=== PATIENT | female | born 1985 | race Caucasian/White ===

== ENCOUNTER 2016-06-03 21:41 | Emergency (ER) | payer OTHER ==
[~2016-06-03] VITALS: Ht 170.2 cm; Wt 54.4 kg
[2016-06-03 22:04] VITALS: BP 134/90
--- NOTE | 2016-06-03 22:59 | NUR ---
30Y/O FEMALE PRESENTED TO ER C/O OF PAIN TO RT FOOT AFTER SOMETHING FELL IN HER FOOT 2 DAYS AGO. HX OF CIRRHOSIS OF THE LIVER . PT DENIES N/V/D; SKIN IS PINK/WARM/DRY; AAOX4 WITH EVEN AND STEADY GAIT; LUNGS CLEAR BL; HR EVEN AND REGULAR; PT DENIES ANY FEVER, CP, SOB, OR COUGH AT THIS TIME; PATIENT STATES PAIN OF 10/10 AT THIS TIME; VSS; PATIENT POSITIONED FOR COMFORT; HOB ELEVATED; BEDRAILS UP X2; BED DOWN. ER MD MADE AWARE OF PT STATUS.
--- NOTE | 2016-06-03 22:59 | NUR ---
PT AMBULATED TO BED 7 AT THIS TIME.
--- NOTE | 2016-06-03 23:00 | NUR ---
Patient being evaluated by physician at bedside.
--- NOTE | 2016-06-03 23:09 | NUR ---
xray done at bedside
--- NOTE | 2016-06-03 23:47 | NUR ---
foot splint placed by emt
--- NOTE | 2016-06-03 23:50 | NUR ---
Yanni marroquin in ED - 06/03/16 at 2353 by TRANG Patient discharged with v/s stable. Written and verbal after care instructions given and explained. Patient verbalized understanding. Ambulatory with steady gait. All questions addressed prior to discharge. Advised to follow up with PMD.
[2016-06-03 23:51] VITALS: BP 128/87
--- NOTE | 2016-06-03 23:53 | NUR ---
pt left without signing discharge papers after foot splint was placed.
== END 2016-06-03 23:53 | disposition home or self-care (01) ==
LOC: MED 21:41
DX: S92.331A Displaced fracture of third metatarsal bone, right foot, initial encounter for closed fracture (principal); E11.9 Type 2 diabetes mellitus without complications; K74.60 Unspecified cirrhosis of liver; W01.0XXA Fall on same level from slipping, tripping and stumbling without subsequent striking against object, initial encounter; Y93.89 Activity, other specified; Y92.89 Other specified places as the place of occurrence of the external cause; Y99.8 Other external cause status

== ENCOUNTER 2016-07-23 21:25 | Emergency (ER) | payer OTHER ==
[~2016-07-23] VITALS: Ht 170.2 cm; Wt 54.4 kg
[2016-07-23 21:29] VITALS: BP 131/81
--- NOTE | 2016-07-23 23:20 | NUR ---
PATIENT LEFT WITHOUT BEING SEEN BY DR. ZIMMER. NO FURTHER CARE PROVIDED FOR PATIENT.
== END 2016-07-23 23:20 | disposition left against medical advice (07) ==
LOC: MED 21:25
DX: O26.891 Other specified pregnancy related conditions, first trimester (principal); R10.9 Unspecified abdominal pain; Z53.21 Procedure and treatment not carried out due to patient leaving prior to being seen by health care provider

== ENCOUNTER 2016-10-23 15:00 | Emergency (ER) | payer OTHER ==
[~2016-10-23] VITALS: Ht 167.6 cm; Wt 58.7 kg
[2016-10-23 15:33] VITALS: BP 133/82
== END 2016-10-23 17:15 | disposition left against medical advice (07) ==
LOC: MED 15:00
DX: R10.9 Unspecified abdominal pain (principal); Z53.21 Procedure and treatment not carried out due to patient leaving prior to being seen by health care provider
CPT/HCPCS: 81002; 81025

== ENCOUNTER 2016-11-15 17:05 | Emergency (ER) | payer OTHER ==
[~2016-11-15] VITALS: Ht 162.6 cm; Wt 61.4 kg
[2016-11-15 17:10] VITALS: BP 120/62
--- NOTE | 2016-11-15 18:56 | NUR ---
Patient ambulated to bed 3. RN evaluating patient at bedside.
--- NOTE | 2016-11-15 19:08 | NUR ---
PATIENT PRESENTS TO ED WITH c/o pain on rt [place]ola. pt states she has had problems with cysts on this breast in the past and has had to have it drained . PT DENIES N/V/D; AAOX4 WITH EVEN AND STEADY GAIT; LUNGS CLEAR BL; HR EVEN AND REGULAR; PT DENIES ANY FEVER, CP, SOB, OR COUGH AT THIS TIME; PATIENT STATES PAIN OF 10/10 AT THIS TIME; VSS; PATIENT POSITIONED FOR COMFORT; HOB ELEVATED; BEDRAILS UP X2; BED DOWN. ER MD MADE AWARE OF PT STATUS.
--- NOTE | 2016-11-15 19:20 | NUR ---
Dr. Nguyen evaluating patient at bedside.
[2016-11-15] MEDS ORDERED: NACL 0.9% 500 ML IV ONE (19:30)
[2016-11-15] MEDS ORDERED: KETOROLAC 30 MG/ML VIAL IVP ONE (19:30)
--- NOTE | 2016-11-15 19:55 | NUR ---
us at bedside
[2016-11-15 20:40] VITALS: BP 119/62
--- NOTE | 2016-11-15 20:40 | NUR ---
Patient discharged with v/s stable. Written and verbal after care instructions given and explained. Patient alert, oriented and verbalized understanding of instructions. Ambulatory with steady gait. All questions addressed prior to discharge. ID band removed. Patient advised to follow up with PMD. Rx of clindamycin, motrin and keflex given. Patient educated on indication of medication including possible reaction and side effects. Opportunity to ask questions provided and answered.
== END 2016-11-15 20:40 | disposition home or self-care (01) ==
LOC: MED 17:05
DX: O91.212 Nonpurulent mastitis associated with pregnancy, second trimester (principal); E11.9 Type 2 diabetes mellitus without complications
CPT/HCPCS: 76641; 76805; 81025; 82948; 96361; 96374; 99284; J1885; J7030; Q0092; 81002

== ENCOUNTER 2017-01-20 06:20 | Emergency (ER) | payer OTHER ==
[~2017-01-20] VITALS: Ht 170.2 cm; Wt 64.4 kg
[2017-01-20 06:31] VITALS: BP 137/86
--- NOTE | 2017-01-20 06:40 | NUR ---
PT TAKEN TO OF2
--- NOTE | 2017-01-20 06:46 | NUR ---
Dr. Quiroga evaluating patient
[2017-01-20] MEDS ORDERED: diphenhydrAMINE 50 MG CAP PO ONE (06:50)
--- NOTE | 2017-01-20 07:05 | NUR ---
Dr. Iqbal evaluating patient
[2017-01-20] MEDS ORDERED: DEXAMETHASONE 10 MG/ML VIAL IM ONE (07:10)
[2017-01-20 07:47] VITALS: BP 128/84
--- NOTE | 2017-01-20 07:47 | NUR ---
Patient discharged with v/s stable. Written and verbal after care instructions given and explained. Patient alert, oriented and verbalized understanding of instructions. Ambulatory with steady gait. All questions addressed prior to discharge. ID band removed. Patient advised to follow up with PMD. Rx of PERMETHRIN, KEFLEX, DIPHENHYDRAMINE given. Patient educated on indication of medication including possible reaction and side effects. Opportunity to ask questions provided and answered.
== END 2017-01-20 07:47 | disposition home or self-care (01) ==
LOC: MED 06:20
DX: S40.861A Insect bite (nonvenomous) of right upper arm, initial encounter (principal); S40.862A Insect bite (nonvenomous) of left upper arm, initial encounter; S20.469A Insect bite (nonvenomous) of unspecified back wall of thorax, initial encounter; W57.XXXA Bitten or stung by nonvenomous insect and other nonvenomous arthropods, initial encounter; Y93.89 Activity, other specified; Y92.89 Other specified places as the place of occurrence of the external cause; Y99.8 Other external cause status
CPT/HCPCS: 96372; 99283; J1100; Q0163

== ENCOUNTER 2017-01-22 17:12 | Emergency (ER) | payer OTHER ==
[~2017-01-22] VITALS: Ht 170.2 cm; Wt 65.5 kg
[2017-01-22 17:17] VITALS: BP 121/70
--- NOTE | 2017-01-22 20:07 | NUR ---
patient to er bed 8
--- NOTE | 2017-01-22 20:15 | NUR ---
31F BIB FATHER C/O BUG BITES TO BL ARMS X 6 DAYS. PT STATES WAS AT [facility] TWO DAYS AGO FOR SAME ISSUE. PT STATES 35 WEEKS AT THIS TIME. PT DENIES N/V/D; AAOX4 WITH EVEN AND STEADY GAIT; LUNGS CLEAR BL; HR EVEN AND REGULAR; PT DENIES ANY FEVER, CP, SOB, OR COUGH AT THIS TIME; PATIENT STATES PAIN OF 0/10 AT THIS TIME; VSS; PATIENT POSITIONED FOR COMFORT; HOB ELEVATED; BEDRAILS UP X2; BED DOWN. ER MD MADE AWARE OF PT STATUS.
[2017-01-22 20:50] VITALS: BP 121/75
--- NOTE | 2017-01-22 20:50 | NUR ---
Patient discharged with v/s stable. Written and verbal after care instructions given and explained. Patient alert, oriented and verbalized understanding of instructions. Ambulatory with steady gait. All questions addressed prior to discharge. ID band removed. Patient advised to follow up with PMD. Rx of BENADRYL, PREMETHRIN given. Patient educated on indication of medication including possible reaction and side effects. Opportunity to ask questions provided and answered.
== END 2017-01-22 20:50 | disposition home or self-care (01) ==
LOC: MED 17:12
DX: L29.9 Pruritus, unspecified (principal); E11.9 Type 2 diabetes mellitus without complications; F17.200 Nicotine dependence, unspecified, uncomplicated; W57.XXXA Bitten or stung by nonvenomous insect and other nonvenomous arthropods, initial encounter; Y93.89 Activity, other specified; Y92.89 Other specified places as the place of occurrence of the external cause; Y99.8 Other external cause status
CPT/HCPCS: 99282

== ENCOUNTER 2017-02-09 09:30 | Observation (INO) | payer OTHER ==
[~2017-02-09] VITALS: Ht 170.2 cm; Wt 65.8 kg
[2017-02-09] MEDS ORDERED: BEN50 PO (10:21)
[2017-02-09] MEDS ORDERED: PNV1TABL8 PO (10:21)
[2017-02-09] MEDS ORDERED: CREAM TP (10:21)
[2017-02-09] MEDS: TERBUTALINE 1 MG/ML VIAL SUBQ SCH ×2 (10:40→11:17)
[2017-02-09] MEDS ORDERED: TERBUTALINE 1 MG/ML VIAL SUBQ ONE (10:46)
== END 2017-02-09 12:17 | disposition home or self-care (01) ==
LOC: MLD 09:30
PROVIDERS: ADMIT Obstetrics & Gynecology; ATTEND Obstetrics & Gynecology
DX: O26.893 Other specified pregnancy related conditions, third trimester (principal); S40.862A Insect bite (nonvenomous) of left upper arm, initial encounter; S40.861A Insect bite (nonvenomous) of right upper arm, initial encounter; O62.9 Abnormality of forces of labor, unspecified; W57.XXXA Bitten or stung by nonvenomous insect and other nonvenomous arthropods, initial encounter; Y93.89 Activity, other specified; Y92.89 Other specified places as the place of occurrence of the external cause; Y99.8 Other external cause status; Z3A.36 36 weeks gestation of pregnancy
CPT/HCPCS: 96372; G0378; J3105

== ENCOUNTER 2017-09-05 16:45 | Emergency (ER) | payer OTHER ==
[~2017-09-05] VITALS: Ht 170.2 cm; Wt 54.4 kg
[~2017-09-05 16:45] MED LIST: BEN50 PO; CREAM TP; PNV1TABL8 PO
--- NOTE | 2017-09-05 16:51 | NUR ---
CALLED PATIENT FOR TRIAGE, PT NOT IN ER LOBBY, WENT OUT TO FRONT OF ED AND NO ANSWER.
[2017-09-05 16:53] VITALS: BP 161/89
--- NOTE | 2017-09-05 17:01 | NUR ---
pt ambulates w/ steady gait to bed 11 at this time.
[2017-09-05] MEDS ORDERED: ONDANSETRON 4 MG/2 ML VIAL IVP ONE (18:10)
[2017-09-05] MEDS ORDERED: MORPHINE SULFATE 4 MG/ML SYR IVP ONE (18:10)
[2017-09-05 18:53] LABS: BASOPHILS # (AUTO) 0.1 K/uL (0.00-0.22); BASOPHILS % (AUTO) 0.7 % (0.0-2.0); EOSINOPHILS # (AUTO) 0.1 K/uL (0-0.4); EOSINOPHILS % (AUTO) 1.2 % (0.0-4.0); HEMATOCRIT 40.4 % (36-48); HEMOGLOBIN 13.4 g/dL (12.0-16.0); LYMPHOCYTES # (AUTO) 2.6 K/uL (2.5-16.5); LYMPHOCYTES % (AUTO) 29.3 % (20.5-51.1); MEAN CORPUSCULAR HEMOGLOBIN 32 pg (27-31); MEAN CORPUSCULAR HGB CONC 33 g/dL (33-37); MEAN CORPUSCULAR VOLUME 96.7 fL (80-94); MONOCYTES # (AUTO) 0.4 K/uL (0.8-1.0); MONOCYTES % (AUTO) 4.4 % (1.7-9.3); NEUTROPHILS # (AUTO) 5.8 K/uL (1.8-7.7); NEUTROPHILS % (AUTO) 64.4 % (42.2-75.2); PLATELET COUNT (AUTO) 300 K/uL (140-450); RED BLOOD CELL COUNT(AUTO) 4.18 MIL/uL (4.20-5.40); RED CELL DISTRIBUTION WIDTH 14.5 % (11.6-13.7)
--- NOTE | 2017-09-05 18:56 | NUR ---
pt resting comfortably in [facility] at this time. will continue to monitor.
[2017-09-05 19:05] LABS: ANION GAP 15.1 (8-16); CARBON DIOXIDE 26.2 mmol/L (21-32); CREATININE 1.1 mg/dL (0.6-1.3); POTASSIUM 3.3 mmol/L (3.5-5.1)
--- NOTE | 2017-09-05 19:10 | NUR ---
Pt report given to MEDARDO MCCURDY. Transfer of care at this time.
[2017-09-05 19:12] LABS: ALBUMIN 3.6 g/dL (3.4-5.0); TOTAL BILIRUBIN 0.3 mg/dL (0.0-1.0)
--- NOTE | 2017-09-05 19:32 | NUR ---
pt unable to void at this time. Er MD made aware. no further orders noted
--- NOTE | 2017-09-05 20:18 | NUR ---
Patient appears to be resting comfortably in bed. Vital Signs within normal limits. Respirations even and unlabored.
[2017-09-05] MEDS ORDERED: CEPHALEXIN 500 MG CAP PO ONE (20:45)
[2017-09-05] MEDS ORDERED: SULFAMETH/TRIMETH DS 800/160MG 1 TAB PO ONE (20:45)
--- NOTE | 2017-09-05 21:15 | NUR ---
Patient discharged with v/s stable. Written and verbal after care instructions given and explained. Patient alert, oriented and verbalized understanding of instructions. Ambulatory with steady gait. All questions addressed prior to discharge. ID band removed. Patient advised to follow up with PMD. Rx of BACTRIM, KEFLEX AND IBUPROFEN given. Patient educated on indication of medication including possible reaction and side effects. Opportunity to ask questions provided and answered.
[2017-09-05 21:17] VITALS: BP 134/72
== END 2017-09-05 21:15 | disposition home or self-care (01) ==
LOC: MED 16:45
DX: L73.9 Follicular disorder, unspecified (principal); R74.0 Nonspecific elevation of levels of transaminase and lactic acid dehydrogenase [LDH]; E11.9 Type 2 diabetes mellitus without complications; Z79.899 Other long term (current) drug therapy
CPT/HCPCS: 36415; 80053; 83690; 85025; 96374; 96375; 99284; J2270; J2405

== ENCOUNTER 2018-01-26 18:29 | Emergency (ER) | payer OTHER ==
[~2018-01-26] VITALS: Ht 170.2 cm; Wt 54.4 kg
[2018-01-26 18:35] VITALS: BP 131/64
[2018-01-26] MEDS: MORPHINE SULFATE 2 MG/ML SYR IVP ONE (20:02)
[2018-01-26] MEDS: NACL 0.9% 500 ML IV ONE (20:07)
[2018-01-26 20:32] LABS: BASOPHILS # (AUTO) 0.1 K/uL (0.00-0.22); BASOPHILS % (AUTO) 0.8 % (0.0-2.0); EOSINOPHILS # (AUTO) 0.1 K/uL (0-0.4); EOSINOPHILS % (AUTO) 1.2 % (0.0-4.0); HEMATOCRIT 43.8 % (36-48); HEMOGLOBIN 14.4 g/dL (12.0-16.0); LYMPHOCYTES # (AUTO) 2.5 K/uL (2.5-16.5); LYMPHOCYTES % (AUTO) 25.6 % (20.5-51.1); MEAN CORPUSCULAR HEMOGLOBIN 32 pg (27-31); MEAN CORPUSCULAR HGB CONC 33 g/dL (33-37); MEAN CORPUSCULAR VOLUME 95.7 fL (80-94); MONOCYTES # (AUTO) 0.9 K/uL (0.8-1.0); NEUTROPHILS # (AUTO) 6.2 K/uL (1.8-7.7); NEUTROPHILS % (AUTO) 63.4 % (42.2-75.2); PLATELET COUNT (AUTO) 362 K/uL (140-450); RED BLOOD CELL COUNT(AUTO) 4.57 MIL/uL (4.20-5.40); RED CELL DISTRIBUTION WIDTH 13.7 % (11.6-13.7); WHITE BLOOD COUNT (AUTO) 9.8 K/uL (4.8-10.8)
[2018-01-26 20:49] LABS: APPEARANCE,URINE CLEAR (CLEAR); BILIRUBIN,URINE 1+ (NEGATIVE); BLOOD, URINE NEGATIVE (NEGATIVE); COLOR,URINE YELLOW (YELLOW); LEUKOCYTE ESTERASE ,URINE NEGATIVE (NEGATIVE); NITRITE, URINE NEGATIVE (NEGATIVE); UGLUCOSE NEGATIVE (NEGATIVE)
[2018-01-26 20:54] LABS: ANION GAP 15.2 (8-16); CARBON DIOXIDE 22.6 mmol/L (21-32); CREATININE 1.1 mg/dL (0.6-1.3); POTASSIUM 3.8 mmol/L (3.5-5.1)
[2018-01-26 20:56] LABS: PROTHROMBIN TIME 8.8 secs (10.8-13.4)
[2018-01-26 20:57] LABS: RBC,URINE 3-10 (FEW) /HPF (0-5); WBC,URINE 0-5 (RARE) /HPF (0-5)
[2018-01-26 21:03] LABS: ALBUMIN 3.7 g/dL (3.4-5.0); TOTAL BILIRUBIN 0.2 mg/dL (0.0-1.0)
[2018-01-26 21:20] VITALS: BP 127/74
== END 2018-01-26 21:20 | disposition home or self-care (01) ==
LOC: MED 18:29
DX: S13.4XXA Sprain of ligaments of cervical spine, initial encounter (principal); R51 Headache; E11.9 Type 2 diabetes mellitus without complications; K74.60 Unspecified cirrhosis of liver; Z88.0 Allergy status to penicillin; V89.2XXA Person injured in unspecified motor-vehicle accident, traffic, initial encounter; Y93.19 Activity, other involving water and watercraft; Y92.488 Other paved roadways as the place of occurrence of the external cause; Y99.8 Other external cause status
CPT/HCPCS: 36415; 70450; 72125; 80053; 81001; 81025; 82140; 85025; 85610; 85730; 96374; 99285; G0482; J2270; J7030

== ENCOUNTER 2018-03-29 12:31 | Emergency (ER) | payer SELFPAY ==
[~2018-03-29] VITALS: Ht 170.2 cm; Wt 54.4 kg
[2018-03-29 12:41] VITALS: BP 127/78
--- NOTE | 2018-03-29 12:43 | NUR ---
AAO PT AMBULATES TO BED 5
--- NOTE | 2018-03-29 12:45 | NUR ---
PT C/O VAGINAL BLEEDING X 2 WEEKS 10 ppd. STATES SHE'S 2 MOS SEEN AT CLINIC. LMP 3 MONTHS AGO UNK DATE. . 02/10 ABD PAIN. WEAKNESS+. HX---CIRRHOSIS OF LIVER
--- NOTE | 2018-03-29 12:56 | NUR ---
no fht heard via doppler; notified
--- NOTE | 2018-03-29 13:07 | NUR ---
lab at bedside
--- NOTE | 2018-03-29 13:36 | NUR ---
ultrasound at bedside
[2018-03-29 13:46] LABS: APPEARANCE,URINE CLEAR (CLEAR); BILIRUBIN,URINE NEGATIVE (NEGATIVE); BLOOD, URINE SMALL (NEGATIVE); COLOR,URINE YELLOW (YELLOW); LEUKOCYTE ESTERASE ,URINE NEGATIVE (NEGATIVE); NITRITE, URINE POSITIVE (NEGATIVE); UGLUCOSE NEGATIVE (NEGATIVE)
[2018-03-29 13:52] LABS: RBC,URINE 0-5 (RARE) /HPF (0-5); WBC,URINE 0-5 (RARE) /HPF (0-5)
[2018-03-29 13:52] LABS: HEMATOCRIT 36.5 % (36-48); HEMOGLOBIN 12.3 g/dL (12.0-16.0); MEAN CORPUSCULAR HEMOGLOBIN 32 pg (27-31); MEAN CORPUSCULAR HGB CONC 34 g/dL (33-37); MEAN CORPUSCULAR VOLUME 34.4 fL (80-94); RED BLOOD CELL COUNT(AUTO) 3.87 MIL/uL (4.20-5.40); WHITE BLOOD COUNT (AUTO) 10.2 K/uL (4.8-10.8)
[2018-03-29 13:53] LABS: BASOPHILS # (AUTO) 0.1 K/uL (0.00-0.22); BASOPHILS % (AUTO) 0.6 % (0.0-2.0); EOSINOPHILS # (AUTO) 0.1 K/uL (0-0.4); EOSINOPHILS % (AUTO) 0.9 % (0.0-4.0); LYMPHOCYTES # (AUTO) 2.8 K/uL (2.5-16.5); LYMPHOCYTES % (AUTO) 25.7 % (20.5-51.1); MONOCYTES # (AUTO) 0.6 K/uL (0.8-1.0); MONOCYTES % (AUTO) 5.7 % (1.7-9.3); NEUTROPHILS # (AUTO) 6.9 K/uL (1.8-7.7); NEUTROPHILS % (AUTO) 67.1 % (42.2-75.2); PLATELET COUNT (AUTO) 404 K/uL (140-450); RED CELL DISTRIBUTION WIDTH 13.8 % (11.6-13.7)
[2018-03-29 13:53] LABS: HYALINE CASTS, URINE 0-10 /LPF (None Seen)
[2018-03-29] MEDS ORDERED: MORPHINE SULFATE 4 MG/ML SYR IM ONE (14:55)
[2018-03-29 15:20] VITALS: BP 116/69
--- NOTE | 2018-03-29 15:20 | NUR ---
Patient discharged with v/s stable. Written and verbal after care instructions given and explained. Patient alert, oriented and verbalized understanding of instructions. Ambulatory with steady gait. All questions addressed prior to discharge. ID band removed. Patient advised to follow up with PMD. Rx of Macrobid, [place], Zofran given. Patient educated on indication of medication including possible reaction and side effects. Opportunity to ask questions provided and answered.
== END 2018-03-29 15:20 | disposition home or self-care (01) ==
LOC: MED 12:31
DX: O20.0 Threatened abortion (principal); O23.41 Unspecified infection of urinary tract in pregnancy, first trimester; F17.200 Nicotine dependence, unspecified, uncomplicated; E11.9 Type 2 diabetes mellitus without complications; Z3A.12 12 weeks gestation of pregnancy; Z88.0 Allergy status to penicillin; Z79.899 Other long term (current) drug therapy
CPT/HCPCS: 36415; 76817; 81001; 84702; 85025; 86900; 86901; 96372; 99284; J2270; Q0092

== ENCOUNTER 2018-06-07 11:47 | Emergency (ER) | payer MEDICAID ==
--- NOTE | 2018-06-07 11:59 | NUR ---
CALLED FOR TRIAGE, NO ANSWER.
--- NOTE | 2018-06-07 12:18 | NUR ---
CALLED FOR TRIAGE, NO ANSWER
== END 2018-06-07 11:59 | disposition left against medical advice (07) ==
LOC: MED 11:47
DX: R10.9 Unspecified abdominal pain (principal); Z53.21 Procedure and treatment not carried out due to patient leaving prior to being seen by health care provider

== ENCOUNTER 2018-06-25 13:23 | Emergency (ER) | payer MEDICAID ==
[~2018-06-25] VITALS: Ht 167.6 cm; Wt 54.9 kg
[2018-06-25 13:26] VITALS: BP 151/98
--- NOTE | 2018-06-25 13:36 | NUR ---
pt ambulated to er bed 03
--- NOTE | 2018-06-25 13:43 | NUR ---
32 YO F BIB SELF FOR MEDICAL CLEARANCE PRIOR TO BEING ADMITTED INTO REHAB/DETOX FOR DRUGS ETOH. PT NEEDS MED FILE ONCE CLEARED FAXED TO [facility]. PT DENIES THAT SHE NEEDS ANY MEDICAL ATTENTION. HX ETOH AND DRUG ABUSE RX DENIES
[2018-06-25 14:15] LABS: BASOPHILS # (AUTO) 0.1 K/uL (0.00-0.22); BASOPHILS % (AUTO) 0.6 % (0.0-2.0); EOSINOPHILS # (AUTO) 0.1 K/uL (0-0.4); EOSINOPHILS % (AUTO) 0.9 % (0.0-4.0); HEMATOCRIT 42.6 % (36-48); HEMOGLOBIN 13.9 g/dL (12.0-16.0); LYMPHOCYTES # (AUTO) 2.3 K/uL (2.5-16.5); LYMPHOCYTES % (AUTO) 20.9 % (20.5-51.1); MEAN CORPUSCULAR HEMOGLOBIN 31 pg (27-31); MEAN CORPUSCULAR HGB CONC 33 g/dL (33-37); MEAN CORPUSCULAR VOLUME 95.9 fL (80-94); MONOCYTES # (AUTO) 0.8 K/uL (0.8-1.0); NEUTROPHILS # (AUTO) 7.7 K/uL (1.8-7.7); NEUTROPHILS % (AUTO) 70.6 % (42.2-75.2); PLATELET COUNT (AUTO) 322 K/uL (140-450); RED BLOOD CELL COUNT(AUTO) 4.44 MIL/uL (4.20-5.40); WHITE BLOOD COUNT (AUTO) 10.9 K/uL (4.8-10.8)
[2018-06-25 14:20] LABS: BARBITURATE, URINE NEG. ng/ml (NEG <=200); BENZODIAZEPINE, URINE NEG. ng/mL (NEG <=200); CANNABINOID, URINE POS. ng/mL (NEG <=50); COCAINE, URINE NEG. ng/mL (NEG <=300); OPIATE, URINE NEG. ng/mL (NEG <=2000); PHENCYCLIDINE SCREEN,URINE NEG. ng/mL (NEG <=25)
[2018-06-25 14:24] LABS: APPEARANCE,URINE CLOUDY (CLEAR); BILIRUBIN,URINE NEGATIVE (NEGATIVE); BLOOD, URINE 1+ (NEGATIVE); COLOR,URINE YELLOW (YELLOW); LEUKOCYTE ESTERASE ,URINE NEGATIVE (NEGATIVE); NITRITE, URINE NEGATIVE (NEGATIVE); UGLUCOSE NEGATIVE (NEGATIVE)
[2018-06-25 14:25] LABS: ANION GAP 15.3 (8-16); CARBON DIOXIDE 24.1 mmol/L (21-32); CHLORIDE 102 mmol/L (98-107); GFR ARICAN-AMERICAN 82 mL/min (>90); GLUCOSE 99 mg/dL (74-106); POTASSIUM 3.4 mmol/L (3.5-5.1); SODIUM SERUM 138 mmol/L (136-145); UREA NITROGEN, BLOOD 15 mg/dL (7-18)
[2018-06-25 14:31] LABS: RBC,URINE 0-5 (RARE) /HPF (0-5); WBC,URINE 6-15 (FEW) /HPF (0-5)
[2018-06-25 14:32] LABS: ALBUMIN 3.8 g/dL (3.4-5.0); ASPARTATE AMINOTRANSFERASE 65 U/L (15-37); TOTAL BILIRUBIN 0.2 mg/dL (0.0-1.0)
[2018-06-25 14:42] LABS: ACETAMINOPHEN < 0.5 ug/ml (10-30)
[2018-06-25 18:31] VITALS: BP 145/89
--- NOTE | 2018-06-25 18:32 | NUR ---
Patient discharged with v/s stable. Written and verbal after care instructions given and explained. Patient verbalized understanding. Ambulatory with steady gait. All questions addressed prior to discharge. Advised to follow up with PMD.
== END 2018-06-25 18:32 | disposition home or self-care (01) ==
LOC: MED 13:23
DX: F10.229 Alcohol dependence with intoxication, unspecified (principal); F15.10 Other stimulant abuse, uncomplicated; F12.10 Cannabis abuse, uncomplicated; E11.9 Type 2 diabetes mellitus without complications; Z79.899 Other long term (current) drug therapy; Z88.0 Allergy status to penicillin; Y90.7 Blood alcohol level of 200-239 mg/100 ml
CPT/HCPCS: 36415; 80053; 80305; 81001; 81025; 85025; 87086; 87186; 99283; G0480; G0482

== ENCOUNTER 2018-08-23 08:54 | Emergency (ER) | payer MEDICAID ==
[~2018-08-23] VITALS: Ht 170.2 cm; Wt 56.2 kg
--- NOTE | 2018-08-23 09:03 | NUR ---
pt ambulated to er bed 02
[2018-08-23 09:05] VITALS: BP 167/92
--- NOTE | 2018-08-23 09:10 | NUR ---
PT BIB TO THE ED WITH THE CHIEF C/O PAIN ON RIGHT EAR X3 DAYS, RIGHT FOOTX 2 WEEKS AND RUQ ABDOMEN FOR 2WEEKS. PT STATES "I CAN'T HEAR". REPORTS VOMIT. NO N/V AT THIS TIME. AFEBRILE AT THIS TIME. LUNGS CLEAR. ABDOMEN SOFT ROUND AND TENDER. ACTIVE BOWEL SOUND. HAD NORMAL BM X1 TODAY. SWOLLEN RIGHT FOOT NOTED, UNABLE TO MOVE TOES, +NUMBNESS. STATES PAIN OF 10/10 AT THIS TIME. ER MD AWARE. HX OF DM, CIRRHOSIS OF LIVER AND CA GALL BLADDER.
[2018-08-23] MEDS ORDERED: KETOROLAC 30 MG/ML VIAL IM ONE (09:25)
--- NOTE | 2018-08-23 10:17 | NUR ---
PT WAS EXPLAINED ABOUT PT'S X-RAY RESULTS BY ZAINAB LA.
--- NOTE | 2018-08-23 10:40 | NUR ---
Patient discharged with v/s stable. Written and verbal after care instructions given and explained to patient and . Patient alert, oriented and verbalized understanding of instructions. Ambulatory with CRUTCHES. All questions addressed prior to discharge. ID band removed. Patient advised to follow up with PMD. Rx of ULTRAM, NARCAN, AUGMENTINE given. Patient educated on indication of medication including possible reaction and side effects. Opportunity to ask questions provided and answered.
[2018-08-23 10:49] VITALS: BP 143/92
== END 2018-08-23 10:40 | disposition home or self-care (01) ==
LOC: MED 08:54
DX: S90.31XA Contusion of right foot, initial encounter (principal); H66.91 Otitis media, unspecified, right ear; E11.9 Type 2 diabetes mellitus without complications; F10.10 Alcohol abuse, uncomplicated; J02.9 Acute pharyngitis, unspecified; Z88.0 Allergy status to penicillin; Z79.899 Other long term (current) drug therapy; X58.XXXA Exposure to other specified factors, initial encounter; Y93.89 Activity, other specified; Y92.89 Other specified places as the place of occurrence of the external cause; Y99.8 Other external cause status
CPT/HCPCS: 73610; 73630; 82948; 96372; 99283; J1885; Q0092

== ENCOUNTER 2018-11-07 21:46 | Emergency (ER) | payer MEDICAID ==
[~2018-11-07] VITALS: Ht 170.2 cm; Wt 54.4 kg
--- NOTE | 2018-11-07 21:50 | NUR ---
PATIENT PRESENTS TO ED WITH C/O RT SIDE ABD PAIN STARTING THIS AM WITH N/V. PATIENT STATES SHE HAS CHILLS. PT TOOK IBUPROFEN THIS AM W/O RELIEF. PT REPORTS HISTORY OF LIVER CIRRHOSIS, ETOH ABUSE, AND HTN. PATIENT STATES PAIN OF 10/10 AT THIS TIME; BLOOD PRESSURE ELEVATED BUT OTHER VSS; PATIENT POSITIONED FOR COMFORT; HOB ELEVATED; BEDRAILS UP X2; BED DOWN. ER MD MADE AWARE OF PT STATUS.
[2018-11-07 21:56] VITALS: BP 165/111
--- NOTE | 2018-11-07 22:00 | NUR ---
ER MD EVALUATING PATIENT AT BEDSIDE.
[2018-11-07] MEDS ORDERED: ONDANSETRON 4 MG/2 ML VIAL IVP ONE (22:05)
[2018-11-07] MEDS ORDERED: NACL 0.9% 1,000 ML IV ONE (22:05)
[2018-11-07] MEDS ORDERED: MORPHINE SULFATE 4 MG/ML SYR IVP ONE (22:05)
[2018-11-07] MEDS ORDERED: hydrALAZINE 20 MG/ML VIAL IVP ONE (22:10)
--- NOTE | 2018-11-07 22:20 | NUR ---
US TECH AT BEDSIDE.
[2018-11-07 22:49] LABS: BASOPHILS # (AUTO) 0.1 K/uL (0.00-0.22); BASOPHILS % (AUTO) 0.8 % (0.0-2.0); EOSINOPHILS # (AUTO) 0.1 K/uL (0-0.4); EOSINOPHILS % (AUTO) 0.7 % (0.0-4.0); HEMATOCRIT 38.7 % (36-48); HEMOGLOBIN 12.9 g/dL (12.0-16.0); LYMPHOCYTES # (AUTO) 2.6 K/uL (2.5-16.5); LYMPHOCYTES % (AUTO) 22.3 % (20.5-51.1); MEAN CORPUSCULAR HEMOGLOBIN 32 pg (27-31); MEAN CORPUSCULAR HGB CONC 33 g/dL (33-37); MEAN CORPUSCULAR VOLUME 96.4 fL (80-94); MONOCYTES # (AUTO) 0.8 K/uL (0.8-1.0); MONOCYTES % (AUTO) 6.8 % (1.7-9.3); NEUTROPHILS % (AUTO) 69.4 % (42.2-75.2); PLATELET COUNT (AUTO) 335 K/uL (140-450); RED BLOOD CELL COUNT(AUTO) 4.02 MIL/uL (4.20-5.40); RED CELL DISTRIBUTION WIDTH 13.3 % (11.6-13.7); WHITE BLOOD COUNT (AUTO) 11.5 K/uL (4.8-10.8)
[2018-11-07 23:02] LABS: ANION GAP 15.6 (8-16); CARBON DIOXIDE 23.7 mmol/L (21-32); POTASSIUM 3.3 mmol/L (3.5-5.1)
[2018-11-07 23:08] LABS: ALBUMIN 3.1 g/dL (3.4-5.0); TOTAL BILIRUBIN 0.3 mg/dL (0.0-1.0)
[2018-11-07 23:26] VITALS: BP 136/83
--- NOTE | 2018-11-07 23:26 | NUR ---
Patient discharged with v/s stable. Written and verbal after care instructions given and explained. Patient alert, oriented and verbalized understanding of instructions. Ambulatory with steady gait. All questions addressed prior to discharge. ID band removed. Patient advised to follow up with PMD. Rx of IBUPROFEN 600MG given. Patient educated on indication of medication including possible reaction and side effects. Opportunity to ask questions provided and answered.
== END 2018-11-07 23:26 | disposition home or self-care (01) ==
LOC: MED 21:46
DX: R10.11 Right upper quadrant pain (principal); E87.6 Hypokalemia; R74.0 Nonspecific elevation of levels of transaminase and lactic acid dehydrogenase [LDH]; F10.129 Alcohol abuse with intoxication, unspecified; E11.9 Type 2 diabetes mellitus without complications; I10 Essential (primary) hypertension; F17.210 Nicotine dependence, cigarettes, uncomplicated; F12.10 Cannabis abuse, uncomplicated; Z71.6 Tobacco abuse counseling; Z98.890 Other specified postprocedural states; Z88.0 Allergy status to penicillin; Z79.899 Other long term (current) drug therapy; Z85.09 Personal history of malignant neoplasm of other digestive organs
CPT/HCPCS: 36415; 76705; 80053; 83690; 85025; 96374; 96375; 99284; J0360; J2270; J2405; Q0092; J7030

== ENCOUNTER 2019-01-11 13:31 | Emergency (ER) | payer MEDICAID ==
[~2019-01-11] VITALS: Ht 167.6 cm; Wt 56.9 kg
[2019-01-11 13:52] VITALS: BP 131/87
--- NOTE | 2019-01-11 14:02 | NUR ---
handed urine cup for sample --back to [facility] for available room for md jarrell
--- NOTE | 2019-01-11 15:12 | NUR ---
pt called for bed, no answer
== END 2019-01-11 15:12 | disposition left against medical advice (07) ==
LOC: MED 13:31
DX: N64.4 Mastodynia (principal); Z53.21 Procedure and treatment not carried out due to patient leaving prior to being seen by health care provider

== ENCOUNTER 2019-10-22 15:27 | Emergency (ER) | payer MEDICAID, OTHER ==
[~2019-10-22] VITALS: Ht 170.2 cm; Wt 54.9 kg
[2019-10-22 15:34] VITALS: BP 149/102
[2019-10-22] MEDS ORDERED: LORazepam 2 MG/ML VIAL IVP ONE (16:00)
[2019-10-22] MEDS ORDERED: ONDANSETRON 4 MG/2 ML VIAL IVP ONE (16:00)
[2019-10-22] MEDS ORDERED: MULTIVITAMIN-12 10 ML, THIAMINE 100 MG, FOLIC ACID 1 MG, MAGNESIUM SULFATE 50% 2,000 MG... IV SCH ×5 (16:00)
[2019-10-22] MEDS ORDERED: MORPHINE SULFATE 2 MG/ML SYR IVP ONE (16:00)
[2019-10-22 16:20] LABS: BASOPHILS # (AUTO) 0.1 K/uL (0.00-0.22); BASOPHILS % (AUTO) 1.3 % (0.0-2.0); EOSINOPHILS % (AUTO) 0.4 % (0.0-4.0); HEMATOCRIT 41.7 % (36-48); HEMOGLOBIN 14.2 g/dL (12.0-16.0); LYMPHOCYTES # (AUTO) 2.6 K/uL (2.5-16.5); LYMPHOCYTES % (AUTO) 27.6 % (20.5-51.1); MEAN CORPUSCULAR HEMOGLOBIN 33 pg (27-31); MEAN CORPUSCULAR HGB CONC 34 g/dL (33-37); MEAN CORPUSCULAR VOLUME 96.1 fL (80-94); MONOCYTES # (AUTO) 0.5 K/uL (0.8-1.0); MONOCYTES % (AUTO) 5.2 % (1.7-9.3); NEUTROPHILS # (AUTO) 6.2 K/uL (1.8-7.7); NEUTROPHILS % (AUTO) 65.5 % (42.2-75.2); PLATELET COUNT (AUTO) 409 K/uL (140-450); RED BLOOD CELL COUNT(AUTO) 4.34 MIL/uL (4.20-5.40); RED CELL DISTRIBUTION WIDTH 14.6 % (11.6-13.7); WHITE BLOOD COUNT (AUTO) 9.5 K/uL (4.8-10.8)
[2019-10-22 16:39] LABS: PROTHROMBIN TIME 8.7 secs (10.8-13.4)
[2019-10-22 17:36] LABS: ALBUMIN 3.9 g/dL (3.4-5.0); ANION GAP 19.1 (8-16); CARBON DIOXIDE 23.1 mmol/L (21-32); CREATININE 1.4 mg/dL (0.6-1.3); POTASSIUM 4.2 mmol/L (3.5-5.1); TOTAL BILIRUBIN 0.2 mg/dL (0.0-1.0)
[2019-10-22 18:21] VITALS: BP 110/68
== END 2019-10-22 18:21 | disposition home or self-care (01) ==
LOC: MED 15:27
DX: F10.10 Alcohol abuse, uncomplicated (principal); E11.9 Type 2 diabetes mellitus without complications; I10 Essential (primary) hypertension; K22.6 Gastro-esophageal laceration-hemorrhage syndrome; Z88.0 Allergy status to penicillin; Z85.9 Personal history of malignant neoplasm, unspecified; Z79.899 Other long term (current) drug therapy
CPT/HCPCS: 29125; 36415; 80053; 82140; 85025; 85610; 85730; 96365; 96375; 99284; A9153; J2060; J2270; J2405; J3411; J3475; J3490

== ENCOUNTER 2019-12-05 16:00 | Emergency (ER) | payer OTHER ==
[~2019-12-05] VITALS: Ht 170.2 cm; Wt 56.7 kg
[2019-12-05 16:06] VITALS: BP 115/77
[2019-12-05] MEDS ORDERED: NACL 0.9% 1,000 ML IV ONE ×2 (16:45→17:50)
[2019-12-05] MEDS ORDERED: KETOROLAC 15 MG/ML VIAL IVP ONE (16:50)
[2019-12-05] MEDS ORDERED: FAMOTIDINE 20 MG/2 ML VIAL IVP ONE (16:50)
[2019-12-05 17:10] LABS: BASOPHILS # (AUTO) 0.1 K/uL (0.00-0.22); BASOPHILS % (AUTO) 0.9 % (0.0-2.0); EOSINOPHILS # (AUTO) 0.1 K/uL (0-0.4); EOSINOPHILS % (AUTO) 0.5 % (0.0-4.0); HEMATOCRIT 43.6 % (36-48); HEMOGLOBIN 14.5 g/dL (12.0-16.0); LYMPHOCYTES # (AUTO) 1.8 K/uL (2.5-16.5); LYMPHOCYTES % (AUTO) 15.8 % (20.5-51.1); MEAN CORPUSCULAR HEMOGLOBIN 32 pg (27-31); MEAN CORPUSCULAR HGB CONC 33 g/dL (33-37); MEAN CORPUSCULAR VOLUME 97.2 fL (80-94); MONOCYTES % (AUTO) 8.6 % (1.7-9.3); NEUTROPHILS # (AUTO) 8.5 K/uL (1.8-7.7); NEUTROPHILS % (AUTO) 74.2 % (42.2-75.2); PLATELET COUNT (AUTO) 430 K/uL (140-450); RED BLOOD CELL COUNT(AUTO) 4.49 MIL/uL (4.20-5.40); RED CELL DISTRIBUTION WIDTH 14.4 % (11.6-13.7); WHITE BLOOD COUNT (AUTO) 11.4 K/uL (4.8-10.8)
[2019-12-05 17:42] LABS: ALBUMIN 4.4 g/dL (3.4-5.0); ANION GAP 23.1 (8-16); CREATININE 2.5 mg/dL (0.6-1.3); POTASSIUM 5.1 mmol/L (3.5-5.1); TOTAL BILIRUBIN 0.9 mg/dL (0.0-1.0)
[2019-12-05] MEDS ORDERED: THIAMINE 200 MG/2 ML VIAL IM ONE (17:50)
[2019-12-05] MEDS ORDERED: FOLIC ACID 1 MG TAB PO ONE (17:50)
[2019-12-05 19:01] VITALS: BP 120/89
[2019-12-05 19:20] LABS: APPEARANCE,URINE SLIGHTLY CLOUDY (CLEAR); COLOR,URINE YELLOW (YELLOW)
[2019-12-05 19:21] LABS: BILIRUBIN,URINE NEGATIVE (NEGATIVE); BLOOD, URINE NEGATIVE (NEGATIVE); LEUKOCYTE ESTERASE ,URINE NEGATIVE (NEGATIVE); NITRITE, URINE NEGATIVE (NEGATIVE); UGLUCOSE NEGATIVE (NEGATIVE)
== END 2019-12-05 19:02 | disposition home or self-care (01) ==
LOC: MED 16:00
DX: N17.9 Acute kidney failure, unspecified (principal); F19.10 Other psychoactive substance abuse, uncomplicated; R11.10 Vomiting, unspecified; F17.290 Nicotine dependence, other tobacco product, uncomplicated; F15.90 Other stimulant use, unspecified, uncomplicated; F12.90 Cannabis use, unspecified, uncomplicated
CPT/HCPCS: 36415; 76705; 80053; 81003; 81025; 83690; 85025; 96361; 96374; 96375; 99284; J1885; J3411; J3490; J7030; Q0092

== ENCOUNTER 2020-05-06 16:07 | Emergency (ER) | payer OTHER ==
[~2020-05-06] VITALS: Ht 167.6 cm; Wt 60.3 kg
[2020-05-06 16:18] VITALS: BP 164/101
[2020-05-06 16:54] LABS: BASOPHILS # (AUTO) 0.1 K/uL (0.00-0.22); BASOPHILS % (AUTO) 1.4 % (0.0-2.0); EOSINOPHILS # (AUTO) 0.1 K/uL (0-0.4); EOSINOPHILS % (AUTO) 1.1 % (0.0-4.0); HEMATOCRIT 41.1 % (36-48); HEMOGLOBIN 13.7 g/dL (12.0-16.0); LYMPHOCYTES # (AUTO) 2.7 K/uL (2.5-16.5); LYMPHOCYTES % (AUTO) 27.9 % (20.5-51.1); MEAN CORPUSCULAR HEMOGLOBIN 34 pg (27-31); MEAN CORPUSCULAR HGB CONC 33 g/dL (33-37); MEAN CORPUSCULAR VOLUME 100.7 fL (80-94); MONOCYTES # (AUTO) 0.7 K/uL (0.8-1.0); MONOCYTES % (AUTO) 7.7 % (1.7-9.3); NEUTROPHILS # (AUTO) 5.9 K/uL (1.8-7.7); NEUTROPHILS % (AUTO) 61.9 % (42.2-75.2); PLATELET COUNT (AUTO) 410 K/uL (140-450); RED BLOOD CELL COUNT(AUTO) 4.08 MIL/uL (4.20-5.40); RED CELL DISTRIBUTION WIDTH 14.3 % (11.6-13.7); WHITE BLOOD COUNT (AUTO) 9.6 K/uL (4.8-10.8)
[2020-05-06] MEDS ORDERED: ONDANSETRON 4 MG ODT PO ONE (16:55)
[2020-05-06] MEDS ORDERED: KETOROLAC 15 MG/ML VIAL IM ONE (16:55)
[2020-05-06] MEDS ORDERED: DICYCLOMINE HCL LIQUID 20 MG, ALUMINUM HYD/MAG/SIMETHICONE 30 ML, LIDOCAINE VISCOUS 2% ... PO ONE ×3 (16:55)
[2020-05-06] MEDS ORDERED: LIDOCAINE VISCOUS 2% 20 ML UDC ONE (16:58)
[2020-05-06] MEDS ORDERED: ALUMINUM HYD/MAG/SIMETHICONE 30 ML UDC ONE (16:59)
[2020-05-06] MEDS ORDERED: DICYCLOMINE HCL LIQUID 10 MG/5 ML UDC ONE (16:59)
[2020-05-06 17:09] LABS: ALBUMIN 3.7 g/dL (3.4-5.0); ANION GAP 15.1 (8-16); CARBON DIOXIDE 26.2 mmol/L (21-32); POTASSIUM 3.3 mmol/L (3.5-5.1); TOTAL BILIRUBIN 0.4 mg/dL (0.0-1.0)
--- NOTE | 2020-05-06 17:58 | NUR ---
PATIENT ELOPED FROM FACILITY. DISCHARGE INSTRUCTIONS NOT GIVEN TO PATIENT. DR. Murcia NOTIFIED.
== END 2020-05-06 17:58 | disposition left against medical advice (07) ==
LOC: MED 16:07
DX: R10.84 Generalized abdominal pain (principal); R11.10 Vomiting, unspecified; E11.9 Type 2 diabetes mellitus without complications; I10 Essential (primary) hypertension; Z88.0 Allergy status to penicillin; Z79.899 Other long term (current) drug therapy; Z85.51 Personal history of malignant neoplasm of bladder
CPT/HCPCS: 80053; 83690; 85025; 96372; 99283; G0482; J1885; Q0162; 81002; 81025

== ENCOUNTER 2020-10-10 17:48 | Emergency (ER) | payer OTHER ==
[~2020-10-10] VITALS: Ht 162.6 cm; Wt 54.4 kg
[2020-10-10 17:51] VITALS: BP 165/104
--- NOTE | 2020-10-10 17:54 | NUR ---
Patient ambulated with steady gait to bed 5.
--- NOTE | 2020-10-10 17:54 | NUR ---
Yanni marroquin in [facility] - 10/10/20 at 1755 by MAURICIO Patient ambulated with steady gait to beed 5.
--- NOTE | 2020-10-10 18:14 | NUR ---
35 Y/O FEMALE C/O RIGHT SECOND TOE PAIN WITH SWELLING AND REDNESS X 3 DAYS S/P TRIPPING OVER SHOELACE. PT RATES PAIN 10/10 THAT SHE DESCRIBES THROBBING/PULSING AND NONRADIATING. CAP REFILL <3 SECONDS WITH PEDAL PULSES +2. PT ABLE TO AMBULATE. PT DENIES N/V/FEVER AND DENIES TAKING ANYTHING FOR PAIN. PT A/O X4 WITH EVEN AND UNLABORED RESPIRATIONS. MEDHX: CIRRHOSIS, HTN NKDA Addendum: 10/10/20 at 1906 by [email or web address] ALLERGIES:PCN
--- NOTE | 2020-10-10 18:40 | NUR ---
RAD AT BEDSIDE
--- NOTE | 2020-10-10 19:10 | NUR ---
REPORT GIVEN TO PAO BATRES, TRANSFER OF CARE AT THIS TIME
--- NOTE | 2020-10-10 19:12 | NUR ---
RECEIVED REPORT FROM MEDARDO MAR FOR CONTINUITY OF CARE
[2020-10-10] MEDS ORDERED: IBUPROFEN 600 MG TAB PO ONE (19:25)
[2020-10-10] MEDS ORDERED: NAPR-54 PO (19:26)
[2020-10-10 19:46] VITALS: BP 165/104
== END 2020-10-10 19:46 | disposition home or self-care (01) ==
LOC: MED 17:48
DX: S92.531A Displaced fracture of distal phalanx of right lesser toe(s), initial encounter for closed fracture (principal); I10 Essential (primary) hypertension; Z79.899 Other long term (current) drug therapy; Z88.0 Allergy status to penicillin; W22.8XXA Striking against or struck by other objects, initial encounter; Y93.89 Activity, other specified; Y92.89 Other specified places as the place of occurrence of the external cause; Y99.8 Other external cause status
CPT/HCPCS: 73660; 99283

== ENCOUNTER 2021-10-09 03:59 | Emergency (ER) | payer MEDICAID, OTHER ==
[~2021-10-09] VITALS: Ht 170.2 cm; Wt 52.2 kg
[~2021-10-09 03:59] MED LIST changes: +NAPR-54 PO
[2021-10-09 04:10] VITALS: BP 142/76
--- NOTE | 2021-10-09 04:10 | NUR ---
TO BED AMBULATORY
--- NOTE | 2021-10-09 04:12 | NUR ---
Patient BIB by family from home. C/O hand pain x today. Patient reported, had left hand pain after boxing ~ 4 hours ETA.
--- NOTE | 2021-10-09 04:24 | NUR ---
X-Ray at bedside.
[2021-10-09] MEDS ORDERED: KETOROLAC 60 MG/2 ML VIAL IM ONE (04:55)
--- NOTE | 2021-10-09 06:09 | NUR ---
Dr. Clancy examining patient.
--- NOTE | 2021-10-09 06:18 | NUR ---
Dr. Clancy cut a ring. Patient tolerated well.
[2021-10-09] MEDS ORDERED: NAPR-54 PO (06:56)
[2021-10-09 07:11] VITALS: BP 133/63
--- NOTE | 2021-10-09 07:11 | NUR ---
Patient discharged with v/s stable. Written and verbal after care instructions given and explained for finger fracture. Patient alert, oriented and verbalized understanding of instructions. Ambulatory with steady gait. All questions addressed prior to discharge. ID band removed. Patient advised to follow up with PMD. Rx of Naproxen given. Patient educated on indication of medication including possible reaction and side effects. Opportunity to ask questions provided and answered.
== END 2021-10-09 07:11 | disposition home or self-care (01) ==
LOC: MED 03:59
DX: S62.611A Displaced fracture of proximal phalanx of left index finger, initial encounter for closed fracture (principal); S60.445A External constriction of left ring finger, initial encounter; I10 Essential (primary) hypertension; Z79.1 Long term (current) use of non-steroidal anti-inflammatories (NSAID); Z79.899 Other long term (current) drug therapy; Z88.0 Allergy status to penicillin; W50.0XXA Accidental hit or strike by another person, initial encounter; Y93.89 Activity, other specified; Y92.89 Other specified places as the place of occurrence of the external cause; Y99.8 Other external cause status
CPT/HCPCS: 29130; 73130; 96372; 99284; J1885; Q0092